=== PATIENT | female | born 1985 | race Hispanic/Latino ===

== ENCOUNTER 2024-08-29 09:31 | Emergency (ER) | payer BC, SELFPAY ==
[2024-08-29 09:44] VITALS: BP 149/105
--- NOTE | 2024-08-29 10:02 | ED.GENMED ---
History of Present Illness
General
Chief Complaint: Chest Pain
Source: patient
Exam Limitations: none
Time Seen by Provider: 08/29/24 09:53
History of Present Illness
History of Present Illness:
39yoF with no significant past medical history presenting for evaluation of chest pain. Patient was sitting down and watching TV around 6 PM last night. She reports a sudden onset of left-sided chest discomfort and felt like her heart was
pounding. Symptoms have been constant since that time. Nothing seems to make the pain better or worse. She denies any radiating pain. She is otherwise asymptomatic and denies any nausea, vomiting, calf pain, leg swelling, shortness of breath,
syncope. Patient's only current medication is an oral contraceptive pill. She denies any tobacco use.
Phy Exam
General Physical Exam
General Presentation: well appearing and no apparent distress
General age: appears stated age
General Skin: warm and dry
General Habitus: normal
General Mental: alert
ENT Exam
ENT Exam: normocephalic
Cardiovascular Exam
Cardiovascular Exam: regular rate/rhythm, no edema, no murmur and normal peripheral pulses (2+ DP pulses bilaterally)
Pulmonary Exam
Pulmonary Exam: lungs clear, no respiratory distress, no rales, chest non tender, no crackles, no rhonchi and no wheezing
Neurological Exam
Neurological Exam: alert
[place] Coma Scale
Eye Opening: Spontaneous
Verbal Response: Oriented
Motor Response: Obeys Commands
GCS Total Score: 15
Skin Exam
Skin Exam: normal color and warm/dry
Psychiatric Exam
Psychiatric Exam: normal mood/affect
Scores
Heart Score for Chest Pain Patients
STEMI patient?: No
History: Moderately Suspicious
ECG: Normal
Age: </= 45 years
Risk Factors: No Risk Factors
Troponin: </= Normal Limit
Heart Score for Chest Pain Patients: 1
Heart Score Risk: 2.5% MACE over next 6 weeks
Course
Orders/Labs/Results
Orders:
Orders
08/29/24 09:34
EKG [Electrocardiogram (*1)] Urgent
Reason for Study: Chest Pain
EKG- Treatment ONCE
08/29/24 09:49
Test Result ONCE
08/29/24 10:01
Cardiac Monitoring- Treatment ONCE
08/29/24 10:02
CR Chest - 2 Views Urgent
Comment:
Reason For Exam: CP
08/29/24 10:05
Complete Blood Count/With Diff Urgent
Comprehensive Metabolic Panel Urgent
D-Dimer Urgent
HCG, Serum Qualitative Screen Urgent
Magnesium Urgent
TSH Reflex To Free T4 Urgent
Troponin I Urgent
Abnormal Lab Results
08/29/24
10:05
MCH 31.1 H pg
(27.0-31.0)
Sodium 134 L mmol/L
(135-145)
Glucose 112 H mg/dl
(70-99)
08/29/24 10:05
08/29/24 10:05
Vital Signs
Initial and Last Documented VS:
Initial Vital Signs
Temp Pulse Resp BP Pulse Ox
97.9 F 92 20 149/105 100
08/29/24 09:44 08/29/24 09:44 08/29/24 09:44 08/29/24 09:44 08/29/24 09:44
Last Documented Vital Signs
Temp Pulse Resp BP Pulse Ox
97.9 F 70 15 139/99 99
08/29/24 09:44 08/29/24 12:30 08/29/24 12:30 08/29/24 12:42 08/29/24 12:30
MDM/Problems Addressed
Differential Diagnosis Includes:
39yoF here with L sided chest pain/heart pounding since last night. She is mildly hypertensive with otherwise normal vitals. She is well appearing in no distress. Exam is reassuring. Differential diagnosis includes but is not limited to: arrhythmia,
thyroid dysfunction, PE, less likely ACS given age
Initial ED plan: Check cardiac labs, D-dimer, magnesium, TSH, EKG, and CXR.
*EKG
Interpreted by ED Provider?: Yes
EKG Intrepretation Date: 08/29/24
Heart Rate: 88
Rate: normal
Rhythm: sinus
Temple: normal axis
Interval: normal interval
QRS Pattern: normal QRS
Ischemia: no ischemia
*Critical Care Note
Total Time (30-74mins, 75-104mins- exclusive of procedures): Not Applicable
Update Note
Update Note:
Labs overall unremarkable including normal potassium, magnesium, and TSH. D-dimer normal making PE very unlikely. EKG shows normal sinus rhythm without ectopy or ischemic changes and troponin within normal limits. Chest x-ray is clear. No
telemetry events during ED stay. No indication for hospitalization. She was advised to follow-up closely with her PCP. Strict ED return precautions discussed. Patient in agreement with plan and was discharged in stable condition.
ED Attending Note
-
Portions of this chart may have been created with voice recognition software.� Occasional wrong word or��sound alike� substitutions may have occurred due to the inherent limitations of voice recognition software.
Discharge Plan
Departure
Patient Disposition: Home (Routine Discharge)
Date of Disposition: 08/29/24
Time of Disposition: 12:37
Patient with high blood pressure during this ER visit?: Yes
Discharge Problem:
Chest pain, Palpitations
Instructions: Chest Pain PCP Follow Up
Referrals:
NONE,* [Family Provider] -
Activity Restrictions/Additional Instructions:
Please follow-up with your family doctor. Return to the ER with any new or worsening symptoms.
Interventions
Interventions:
*Risk Screen - Suicide Last Done: 08/29/24 10:08
*General Assessment Last Done: 08/29/24 10:08
*Neglect/Abuse Screening Last Done: 08/29/24 10:08
*ED- Fall Risk Assessment Last Done: 08/29/24 10:08
*ED COVID-19 Vaccine History Last Done: 08/29/24 10:08
*Nursing Disposition Last Done: 08/29/24 12:50
ED- Cardiac Assessment Last Done: 08/29/24 10:08
Discharge Date and Time
Discharge Date/Time: 08/29/24 12:50
Print Language: TURKMEN
[2024-08-29 10:07] VITALS: BMI 31.4
[2024-08-29 10:16] LABS: % Basophils 0.8 % (0-2); % Eosinophils 0.8 % (0-6); % Immature Granulocytes 0.2 % (0-0.5); % Lymphocytes 23.7 % (20.5-51.1); % Monocytes 9.1 % (1.7-9.3); % Neutrophils 65.4 % (42.2-75.2); Absolute Lymphocytes 1.2 10^3/uL (1.2-3.4); Absolute Monocytes 0.5 10^3/uL (0.1-0.6); Absolute Neutrophils 3.2 10^3/uL (1.4-6.5); Hematocrit 41.6 % (37.0-47.0); Hemoglobin 14.1 g/dL (12.0-16.0); Mean Corp Hgb Conc. 33.9 g/dL (33.0-37.0); Mean Corpuscular Hgb 31.1 pg (27.0-31.0); Mean Corpuscular Volume 91.6 fL (81.0-99.0); Mean Platelet Volume 9.1 fL (7.4-10.4); Nucleated Red Blood Cells % 0 %; Platelet Count 299 10^3/uL (130-400); Red Blood Cell Count 4.54 10^6/uL (4.20-5.40); Red Cell Dist. Width 12.4 % (11.5-14.5); White Blood Cell Count 4.9 10^3/uL (4.8-10.8)
[2024-08-29 10:26] LABS: HCG, Serum Qualitative Screen Negative
[2024-08-29 10:28] LABS: ALT (SGPT) 25 U/L (0-35); AST (SGOT) 24 U/L (14-36); Albumin 4.1 g/dl (3.5-5.0); Alkaline Phosphatase 74 U/L (38-126); Blood Urea Nitrogen 14 mg/dl (7-17); Calcium 9.6 mg/dl (8.4-10.2); Carbon Dioxide 25 mmol/L (22-30); Chloride 103 mmol/L (98-107); Estimated Creatinine Clearance > 125 ml/min; Glucose 112 mg/dl (70-99); Magnesium 2.1 mg/dl (1.6-2.3); Potassium 4.5 mmol/L (3.5-5.1); Sodium 134 mmol/L (135-145); Total Bilirubin 0.7 mg/dl (0.2-1.3); Total Protein 7.3 g/dl (6.3-8.2); eGFR > 60.00
[2024-08-29 10:53] LABS: D-Dimer < 0.27 ug/mlFEU (0.00-0.50)
[2024-08-29 11:05] LABS: Troponin I < 0.012 ng/ml
[2024-08-29 12:42] VITALS: BP 139/99
== END 2024-08-29 12:50 | disposition home or self-care (01) ==
LOC: EMR 09:31
PROVIDERS: Physician Assistant; EMERGENCY PHYSICIAN Emergency Medicine
DX: R07.89 Other chest pain (principal); R00.2 Palpitations
CPT/HCPCS: 99285; 71046; 80053; 83735; 84443; 84484; 84703; 85025; 85379; 93005

== ENCOUNTER → 2024-10-17 14:23 | Outpatient (REF) | payer BC, SELFPAY | LOC: HWRAD 14:23 | PROVIDERS: ATTENDING PHYSICIAN Physician Assistant Medical | DX: R00.2 Palpitations (principal); R79.89 Other specified abnormal findings of blood chemistry; E04.1 Nontoxic single thyroid nodule | CPT/HCPCS: 76536 ==

== ENCOUNTER → 2024-11-14 09:15 | Outpatient (REF) | payer BC, SELFPAY | LOC: RCS 09:15 | PROVIDERS: ATTENDING PHYSICIAN Physician Assistant Medical | DX: R00.0 Tachycardia, unspecified (principal) | CPT/HCPCS: 93225; 93226 ==

== ENCOUNTER → 2024-11-22 07:38 | Outpatient (REF) | payer BC, SELFPAY ==
[2024-11-22 07:45] VITALS: BP 131/96; BP_SYST 82
[2024-11-22 08:35] VITALS: BP 131/96
== END ==
LOC: RADI 07:38
PROVIDERS: ATTENDING PHYSICIAN Internal Medicine Endocrinology, Diabetes & Metabolism; FAMILY PHYSICIAN Physician Assistant Medical
DX: E04.1 Nontoxic single thyroid nodule (principal)
CPT/HCPCS: 88173; 10005

== ENCOUNTER 2024-12-05 06:11 | Day surgery (SDC) | payer BC, SELFPAY ==
[2024-12-04 08:06] LABS: INR 0.97; PT 13.2 Sec (11.4-14.6)
[2024-12-04 08:07] LABS: APTT 31.1 Sec (23.4-35.0)
[2024-12-04 08:08] LABS: % Basophils 0.6 % (0-2); % Eosinophils 0.7 % (0-6); % Immature Granulocytes 0.4 % (0-0.5); % Lymphocytes 26.8 % (20.5-51.1); % Monocytes 8.1 % (1.7-9.3); % Neutrophils 63.4 % (42.2-75.2); Absolute Basophils 0.1 10^3/uL (0-0.2); Absolute Eosinophils 0.1 10^3/uL (0-0.7); Absolute Lymphocytes 2.2 10^3/uL (1.2-3.4); Absolute Monocytes 0.7 10^3/uL (0.1-0.6); Absolute Neutrophils 5.1 10^3/uL (1.4-6.5); Hematocrit 41.7 % (37.0-47.0); Hemoglobin 13.7 g/dL (12.0-16.0); Mean Corp Hgb Conc. 32.9 g/dL (33.0-37.0); Mean Corpuscular Hgb 30.3 pg (27.0-31.0); Mean Corpuscular Volume 92.3 fL (81.0-99.0); Mean Platelet Volume 9.6 fL (7.4-10.4); Nucleated Red Blood Cells % 0 %; Platelet Count 359 10^3/uL (130-400); Red Blood Cell Count 4.52 10^6/uL (4.20-5.40); Red Cell Dist. Width 12.6 % (11.5-14.5)
[2024-12-04 09:04] LABS: ALT (SGPT) 28 U/L (0-35); AST (SGOT) 25 U/L (14-36); Albumin 4.2 g/dl (3.5-5.0); Alkaline Phosphatase 69 U/L (38-126); Blood Urea Nitrogen 7 mg/dl (7-17); Calcium 8.8 mg/dl (8.4-10.2); Carbon Dioxide 24 mmol/L (22-30); Chloride 109 mmol/L (98-107); Glucose 94 mg/dl (70-99); Potassium 4.8 mmol/L (3.5-5.1); Sodium 142 mmol/L (135-145); Total Bilirubin 0.2 mg/dl (0.2-1.3); Total Protein 7.3 g/dl (6.3-8.2); eGFR > 60.00
[2024-12-05] VITALS (9 sets, daily range): BP systolic 104–124; BP diastolic 63–87; BMI 29.6
[2024-12-05] MEDS: TYLENOL 1000 MG PO (06:43)
[2024-12-05] MEDS: NEURONTIN 300 MG PO (06:43)
[2024-12-05] MEDS: HEPARIN 5000 UNITS SC (06:44)
[2024-12-05] MEDS: NORMOSOL-R/PLASMALYTE-A 1000 IV (06:44)
--- NOTE | 2024-12-05 09:41 | OR.RPT ---
Operative Report
Operative Report
DATE OF OPERATION: December 05, 2024
PREOPERATIVE DIAGNOSIS: Thyroid Cancer - C73
POSTOPERATIVE DIAGNOSIS: Same
SURGEON: Ugo Esposito M.D.
OPERATION: Right Thyroidectomy, Isthmus Resection & Right Level 6 Limited Neck Dissection - 23026
ANESTHESIA: GET
ESTIMATED BLOOD LOSS: 3 cc
DRAINS: None
SPECIMEN: right thyroid lobe and isthmus and right level paratracheal tissue
FINDINGS:
COMPLICATIONS: None
PROCEDURE:
The patient was taken to the operating room and placed in the usual supine position. After adequate general endotracheal anesthesia was established, the patient�s neck was extended, prepped, and draped in the typical sterile fashion. A 4 cm
transcervical incision was made two fingerbreadths above the sternal notch. The skin incision was made with the #15 blade, which was taken through the skin into the subcutaneous tissue. The underlying platysma muscle was divided, and subplatysmal
flaps were created superiorly to the thyroid cartilage and inferiorly to the sternal notch. Strap muscles were identified and at the midline.
Attention was turned to the patient�s right thyroid lobe. The right thyroid lobe was mobilized medially. During this process, the right middle thyroid vein and inferior thyroid artery were dissected and ligated with Ligasure. Next, the right
superior pole was taken down by dissecting and transecting the superior pole vessels with a Ligasure. The right thyroid lobe was mobilized medially. During this process, the right recurrent laryngeal nerve was identified and preserved throughout its
entire course. The right inferior parathyroid gland was identified and preserved. The right thyroid lobe with isthmus was resected off the trachea and sent to the pathology department.
At this time, the right level 6 neck dissection was performed. The tissue between the right carotid artery to the trachea into the anterior mediastinum was carefully dissected. The previously identified recurrent laryngeal nerve and parathyroid
glands were preserved. The tissue was removed and sent to the pathology department.
After obtaining adequate hemostasis, the strap muscle was approximated with #3-0 Vicryl in a running fashion, and platysma muscles were reapproximated with #3-0 Vicryl in an interrupted fashion, and the skin was approximated with #4-0 Monocryl in a
running subcuticular fashion. Steri-strips and sterile dressings were placed. The patient tolerated the procedure well. The final instrument, needle, and sponge counts were correct.
== END 2024-12-05 11:40 | disposition home or self-care (01) ==
LOC: SDS 06:11
PROVIDERS: ATTENDING PHYSICIAN Surgery; FAMILY PHYSICIAN Physician Assistant Medical
DX: C73 Malignant neoplasm of thyroid gland (principal); C77.0 Secondary and unspecified malignant neoplasm of lymph nodes of head, face and neck
CPT/HCPCS: 60252; 88307; 36415; 80053; 85025; 85610; 85730; C1776

== ENCOUNTER → 2025-01-08 14:40 | Outpatient (REF) | payer BC, SELFPAY | LOC: RCS 14:40 | PROVIDERS: ATTENDING PHYSICIAN Internal Medicine Cardiovascular Disease; FAMILY PHYSICIAN Physician Assistant Medical | DX: R07.2 Precordial pain (principal) | CPT/HCPCS: 93306 ==

== ENCOUNTER → 2025-01-23 10:34 | Outpatient (REF) | payer BC, SELFPAY | LOC: RCS 10:34 | PROVIDERS: ATTENDING PHYSICIAN Internal Medicine Cardiovascular Disease; FAMILY PHYSICIAN Physician Assistant Medical | DX: R00.2 Palpitations (principal); R00.0 Tachycardia, unspecified; R07.2 Precordial pain | CPT/HCPCS: 93017 ==